=== PATIENT | male | born 1975 | race African-American/Black ===

== ENCOUNTER 2024-08-16 20:37 | Emergency (ER) | payer SELFPAY ==
[2024-08-16] MEDS ORDERED: Acetaminophen 325 MG TAB ONE (21:33)
[2024-08-16 21:35] LABS: Hematocrit 50.4 % (42.0-52.0); Hemoglobin 15.6 g/dL (14.0-18.0); Mean Corpuscular Hemoglobin 26.7 pg (27.0-31.0); Mean Corpuscular Volume 86.0 fl (78.0-98.0); Platelet Count 336 10x3/uL (130-400); Red Blood Cell (RBC) Count 5.85 mill/uL (4.70-6.10); White Blood Cell (WBC) Count 7.8 10x3/uL (4.8-10.8)
[2024-08-16 21:45] LABS: ALT (SGPT) 40 U/L (Less than 45); AST (SGOT) 31 U/L (11-34); Albumin 4.2 g/dL (3.1-4.5); Alkaline Phosphatase 69 U/L (40-110); Anion Gap 15 mmol/L (10-20); BUN (Urea Nitrogen) 20 mg/dL (8.9-20.6); Bilirubin, Total 0.3 mg/dL (0.3-1.2); Calc. Creatinine Clearance 0 mL/min (70-130); Calcium 9.2 mg/dL (7.8-10.44); Carbon Dioxide 21 mmol/L (22-29); Chloride 102 mmol/L (98-107); Globulin 3.5 g/dL (2.4-3.5); Glucose 185 mg/dL (70-105); Potassium 3.9 mmol/L (3.5-5.1); Sodium 134 mmol/L (136-145)
[2024-08-16 21:52] LABS: MDiff Complete? YES; Platelet Adequacy Comment Appears Adequate
== END 2024-08-16 22:23 | disposition home or self-care (01) ==
LOC: BURERS 20:37
DX: U07.1 COVID-19 (principal); I10 Essential (primary) hypertension; E11.9 Type 2 diabetes mellitus without complications; E78.5 Hyperlipidemia, unspecified; Z79.899 Other long term (current) drug therapy
CPT/HCPCS: 71045; 80053; 83605; 85025; 87400; 87426; 99283